=== PATIENT | male | born 1940 ===

== ENCOUNTER 2016-09-07 03:12 | Inpatient (IN) | payer MEDICARE, OTHER ==
[~2016-09-07] VITALS: Ht 177.8 cm; Wt 94.6 kg
--- NOTE | 2016-09-07 03:00 | NUR ---
received report from Georgie Lechuga rn from [facility] via phone
[2016-09-07 04:15] VITALS: BP 111/67
--- NOTE | 2016-09-07 04:15 | NUR ---
received pt to unit via stretcher accompanied by ems x2. pt a/o x3 20 angiocath to right fa. garland catheter patent and draining yellow/clr urine
[2016-09-07] MEDS ORDERED: NS 1000ML 1,000 ML ONE (04:55)
[2016-09-07] MEDS ORDERED: NS 1000ML IV SCH (05:00)
--- NOTE | 2016-09-07 05:00 | NUR ---
ns order did not cross over to emar, so it was not scanned on wow
[2016-09-07] MEDS ORDERED: CETI10TA18 PO (05:11)
[2016-09-07] MEDS ORDERED: CHOL100011 PO (05:13)
[2016-09-07] MEDS ORDERED: CYAN10005 PO (05:14)
[2016-09-07] MEDS ORDERED: PROP10TA PO (05:16)
[2016-09-07] MEDS ORDERED: NS 100ML 100 ML IV ONE (05:17)
[2016-09-07] MEDS ORDERED: ROCEPHIN ONE (05:17)
[2016-09-07] MEDS: ROCEPHIN 1,000 MG in NS 100ML 100 ML IV SCH ×3 (05:21→20:50)
[2016-09-07] MEDS ORDERED: TIMO5DRO5 BOTH EYES (05:25)
[2016-09-07] MEDS ORDERED: UREA198C TP (05:26)
[2016-09-07] MEDS ORDERED: TAMS-14 PO (05:30)
[2016-09-07 06:52] LABS: CREATINE KINASE MB 2.2 ng/mL (0.5-3.6)
[2016-09-07 08:19] LABS: BASOPHIL % 0.2 % (0.0-0.2); EOSINOPHIL # 0.2 10^3/uL (0.0-0.2); EOSINOPHIL % 1.2 % (0.0-5.0); HEMATOCRIT 35.4 % (37.0-53.0); LYMPHOCYTES # 0.8 10^3/uL (1.0-4.8); LYMPHOCYTES % 6.2 % (24.0-44.0); MEAN CELL HGB 28.8 pg (26-34); MEAN CELL HGB CONCENTRATION 33.9 g/dL (33-37); MEAN CORP VOLUME 85.1 fL (78-100); MEAN PLATELET VOLUME 9.3 fL (7.8-11.0); MONOCYTES # 0.8 10^3/uL (0.3-0.8); MONOCYTES % 5.7 % (5.0-12.0); NEUTROPHIL # 11.6 10^3/uL (1.8-7.7); NEUTROPHILS % 86.3 % (41.0-85.0); RED BLOOD CELL 4.16 10^6/uL (4.50-5.90); RED CELL DISTRIBUTION WIDTH 12.6 % (11.5-14.5); WHITE BLOOD CELL 13.5 10^3/uL (4.5-11.0)
[2016-09-07] MEDS: TIMOPTIC BOTH EYES SCH ×2 (09:00→21:17)
[2016-09-07] MEDS: VITAMIN D PO SCH (09:00)
[2016-09-07] MEDS: FLOMAX PO SCH (09:00)
[2016-09-07] MEDS: VITAMIN B-12 PO SCH (09:00)
--- NOTE | 2016-09-07 09:25 | NUR ---
DISCHARGE PLANNING: SS VISITED WITH PT CONCERNING DISCHARGE PLANNING. PT LIVES HOME WITH HIS AND IS A [facility] PAT[facility]. PT STATED HE HAS A CANE HE USES NEEDED. PT STATED [facility] HIM AND ASSIST WITH ANY NEEDS HE MAY HAVE. NO FURTHER NEEDS WERE NOTED OR IDENTIFIED AT THIS TIME. PT SAFETY HANDOUT ADDRESSED, NO QUESTIONS ASKED, UNDERSTANDING VERBALIZED. SS TO CONTINUE TO FOLLOW AND MONITOR DISCHARGE PLANNING NEEDS.
--- NOTE | 2016-09-07 09:52 | PCM.HP ---
History of Present Illness Reason for Visit: weakness History of Present Illness 76-year-old ID patient was transferred from [facility] emergency room for the management of acute urinary retention, leukocytosis, systolic cardiac murmur and minimally elevated troponin. This 76-year-old gentleman has been experiencing recent weakness, episode of nausea and vomiting and intolerance to po intake. upon presentation to the emergency room he was noted to be in urinary retention by bladder scan, Mendoza's catheter was placed successfully with significant amount of output. his workup showed leukocytosis, troponin at the ID was 0.8. EKG showed normal sinus rhythm. Examination confirmed the presence of 4/6 systolic murmur likely aortic stenosis examination today showedright leg edema.. Was chronic large anterior abdominal wall hernia the patient would like this to be managed by a ID surgeon for chronic presence Past Medical History Cardiac: HTN, Aortic Stenosis Pulmonary: COPD GI: Constipation Musculoskeletal: Chronic Low Back Pain Ab: Cooperative/Pleasant Past Surgical History: Other ( denies cardiac procedures other than echocardiogram) Past Social History Smoke: No Occupation: Karate process trainer Alcohol: rare Travel Hx EBOLA RISK:Travel to/contact w: No Is pt experiencing any Ebola s: No Review of Systems Constitutional: : Malaise: Weakness Eyes: No: Conjunctivae inflammation, Eyelid inflammation, Other, Pain, Redness , Vision change Respiratory: : SOB with excertionNo: Cough, Dry, Hemoptysis, Other, Pleuritic Pain, Shortness of breath, Sputum, Wheezing, Wheezing Gastrointestinal: : Abdominal Pain: Nausea: Other (intolerance for food): Vomiting Genitourinary: Dysuria Retention Musculoskeletal: No: arm pain, back pain, foot pain, hand pain, leg pain, neck pain, other, shoulder pain Skin: No: Bruising, Jaundice, Lesions, Other, Rash Allergies: Coded Allergies: nifedipine (Unverified Allergy, Intermediate, 09/07/16) lisinopril (Unverified Allergy, Unknown, 09/07/16) magnesium citrate (Unverified Adverse Reaction, Unknown, 09/07/16) Scheduled Cetirizine Hcl (Cetirizine Hcl) 10 MG PO DAILY (Reported) Cholecalciferol (Vitamin D3) (Vitamin D) 1,000 UNIT PO DAILY (Reported) Cyanocobalamin (Vitamin B-12) (Vitamin B-12) 1,000 MCG PO DAILY (Reported) Propranolol Hcl (Propranolol Hcl) 10 MG PO BID (Reported) Tamsulosin Hcl (Flomax) 0.4 MG PO DAILY (Reported) Timolol Maleate (Timolol Maleate) 1 DROP BOTH EYES BID (Reported) Urea (Urea) 30 GM TP HS (Reported) VTE VTE Risk Total Score: 3 VTE Risk Score VTE Risk: Score 0-1 = Low Risk (Aggressive mobilization; early ambulation; no VTE prophylaxis required) Score 2: Moderate Risk (Intermittent/Pneumatic Compression Device OR Lovenox/Heparin/Coumadin) Score 3-4: High Risk (Intermittent/Pneumatic Compression Device AND Lovenox/Heparin/Coumadin) Score > or =5: Highest Risk (Intermittent/Pneumatic Compression Device AND Lovenox/Heparin/Coumadin) VTE VTE Present on Admission: Yes Currently receiving anticoagul: No VTE Risk Total Score: 3 Exam Vital Signs Vital Signs Date Time Temp Pulse Resp B/P Pulse Ox O2 Delivery O2 Flow Rate FiO2 09/07/16 05:53 Room Air 09/07/16 04:15 97.9 75 18 111/67 95 General Appearance: Alert, Oriented X3, Cooperative HEENT: Atraumatic, PERRLA, EOMI Respiratory: Clear to auscultation Cardiovascular: Regular rate, Other ( for over 6 systolic murmur and aortic location) Abdominal: Normal bowel sounds, Other ( large protruding abdominal hernia) Extremities: No clubbing, Other ( right leg swelling, left is normal) Assessment/Plan Assessment/Plan Assessment/Plan - acute prostatism with urinary retention - aortic stenosis moderate to severe by examination - minimal troponin elevation the second set repeated in our facility was normal , EKG was normal - hypertension - large abdominal wall hernia - abdominal pain with nausea and vomiting plan: CT of the abdomen pelvis, consult urology, echocardiogram, IV fluids with hydration, symptomatic management, check ultrasound of the lower extremity for DVT Problems: MEAGAN MENESES MD Sep 07, 2016 09:52
[2016-09-07] MEDS: INDERAL PO SCH ×2 (10:01→20:51)
[2016-09-07] MEDS: LOVENOX SQ SCH (10:04)
[2016-09-07] MEDS: NS 1000ML 1,000 ML IV SCH (10:08)
[2016-09-07 11:32] LABS: ALANINE AMINOTRANSFERASE 42 U/L (12-78); ALBUMIN 1.5 g/dL (3.4-5.0); ALKALINE PHOSPHATASE 56 U/L (50-136); ASPARTATE AMINO TRANSFERASE 46 U/L (0-35); BILIRUBIN,DIRECT 0.11 mg/dL (0.00-0.30); CREATINE KINASE MB 1.5 ng/mL (0.5-3.6)
[2016-09-07] MEDS ORDERED: LEVAQUIN IV ONE (12:00)
--- NOTE | 2016-09-07 13:03 | DIREP ---
PROCEDURE:CT ABDOMEN/PELVIS W/ CONTRAST COMPARISON:None. INDICATIONS:hernia TECHNIQUE:Axial images were created through the abdomen and pelvis with non-ionic intravenous contrast material. Oral contrast was administered. Sagittal and coronal reconstructions were performed from source images. FINDINGS: LUNG BASES:Bilateral subpleural interstitial thickening suggesting fibrosis or atelectasis. Vascular calcifications. LIVER:Tiny cyst in the central liver measures 9 mm. Left hepatic lobe cyst measures 2.8 cm. BILIARY:There is a gallstone in the lumen of the gallbladder. There is no biliary ductal dilatation. PANCREAS:Normal. No lesion, fluid collection, ductal dilatation, or atrophy. SPLEEN:Normal. No enlargement or focal lesion. ADRENALS:Normal. No mass or enlargement. URINARY TRACT:Normal. No focal lesions or hydronephrosis. AORTA/VASCULAR:There are aortic atherosclerotic calcifications present. No aneurysm. RETROPERITONEUM:Normal. No mass or adenopathy. BOWEL/MESENTERY:diverticulosis of the descending and sigmoid colon without acute diverticulitis. ABDOMINAL WALL:There is a large midline anterior abdominal wall hernia containing transverse colon. Opening measures 6 cm. Hernia sac measures 20 cm in transverse and 13 cm in cephalocaudad dimensions. A second, slightly lower midline abdominal wall hernia contains nearly all of the small bowel and right colon. Opening measures 4.5 x 3.5 cm. Hernia sac measures 21 cm in transverse and 21 cm in cephalocaudad dimensions. PELVIC ORGANS:There is a catheter within the urinary bladder. Enlarged prostate. BONES:There are degenerative changes of the spine. OTHER:Negative. CONCLUSION: 1. There are 2 separate anterior abdominal wall hernias, both in the midline of the anterior abdominal wall. See above discussion. 2. Diverticulosis of the colon without acute diverticulitis. 3. Cholelithiasis. Dictated by: Adrian Jordan M.D. on 09/07/2016 at 12:54 PM
[2016-09-07 13:11] VITALS: BP 112/58
--- NOTE | 2016-09-07 13:51 | DIREP ---
PROCEDURE:US DUPLEX EXTREM VEINS BILATERAL COMPARISON:[facility], CT, CT ABD/PELVIS W/ CONTRAST, 09/07/2016, 11:16 AM. INDICATIONS:rle swelling, pain TECHNIQUE:The lower extremities were evaluated utilizing chase scale images with segmental compression, color Doppler, and spectral Doppler with respiratory variation and augmentation. FINDINGS: RIGHT Common femoral vein:Patent Superficial femoral vein:Patent Popliteal vein:Patent Anterior tibial vein:Patent Posterior tibial vein:Patent Greater saphenous vein:Patent Waveforms are within normal limits. LEFT Common femoral vein:Patent Superficial femoral vein:Patent Popliteal vein:Patent Anterior tibial vein:Patent Posterior tibial vein:Patent Greater saphenous vein:Patent Waveforms are within normal limits. CONCLUSION: 1. No evidence of deep venous thrombosis within either lower extremity. Dictated by: Francisco Pérez M.D. on 09/07/2016 at 12:48 PM
[2016-09-07 15:46] VITALS: BP 97/56
--- NOTE | 2016-09-07 18:30 | NUR ---
received report from 0630 shift
[2016-09-07 18:38] LABS: CREATINE KINASE MB 0.9 ng/mL (0.5-3.6)
[2016-09-07 19:20] VITALS: BP 117/64
[2016-09-07] MEDS: PEPCID PO SCH (20:50)
--- NOTE | 2016-09-07 21:00 | NUR ---
up to br with walker with standby assist , pt is able to have a large loose bm
--- NOTE | 2016-09-07 23:02 | NUR ---
dietary consult for low albumin
[2016-09-08 01:06] VITALS: BP 111/65
[2016-09-08 02:20] LABS: CREATINE KINASE MB 0.7 ng/mL (0.5-3.6)
[2016-09-08 04:10] LABS: BILIRUBIN,URINE NEGATIVE (NEGATIVE); PH,URINE 8 (5.0-6.0)
[2016-09-08 04:15] LABS: APPEARANCE,URINE CLEAR (CLEAR); UA COLOR YELLOW (YELLOW); WBC,URINE NONE SEEN WBC/HPF (0-2)
[2016-09-08 05:26] VITALS: BP 125/72
[2016-09-08 05:53] LABS: BASOPHIL % 0.2 % (0.0-0.2); EOSINOPHIL # 0.2 10^3/uL (0.0-0.2); EOSINOPHIL % 1.3 % (0.0-5.0); HEMATOCRIT 35.4 % (37.0-53.0); HEMOGLOBIN 12.1 g/dL (13.9-16.3); LYMPHOCYTES # 0.9 10^3/uL (1.0-4.8); LYMPHOCYTES % 7.6 % (24.0-44.0); MEAN CELL HGB 28.7 pg (26-34); MEAN CELL HGB CONCENTRATION 34.2 g/dL (33-37); MEAN CORP VOLUME 84.1 fL (78-100); MONOCYTES # 0.9 10^3/uL (0.3-0.8); MONOCYTES % 7.3 % (5.0-12.0); NEUTROPHIL # 10.2 10^3/uL (1.8-7.7); NEUTROPHILS % 83.2 % (41.0-85.0); RED BLOOD CELL 4.21 10^6/uL (4.50-5.90); RED CELL DISTRIBUTION WIDTH 12.6 % (11.5-14.5); WHITE BLOOD CELL 12.3 10^3/uL (4.5-11.0)
[2016-09-08 05:57] LABS: ANION GAP 8.1; CALCIUM 7.8 mg/dL (8.4-10.5); CREATININE SERUM 0.85 mg/dL (0.59-1.40); GLUCOSE 101 mg/dL (70-110)
[2016-09-08 06:06] LABS: INR 1.1
[2016-09-08] MEDS: ROCEPHIN 1,000 MG in NS 100ML 100 ML IV SCH ×2 (08:35→21:08)
[2016-09-08] MEDS: INDERAL PO SCH ×2 (08:37→21:08)
[2016-09-08] MEDS: VITAMIN D PO SCH (08:37)
[2016-09-08] MEDS: FLOMAX PO SCH (08:37)
[2016-09-08] MEDS: VITAMIN B-12 PO SCH (08:37)
[2016-09-08] MEDS: CLARITIN PO SCH (08:37)
[2016-09-08] MEDS: TIMOPTIC BOTH EYES SCH ×2 (08:37→21:08)
[2016-09-08] MEDS: PEPCID PO SCH ×2 (08:37→21:08)
--- NOTE | 2016-09-08 08:43 | PRM.PN ---
Subjective Subjective Subjective patient seen and examined. Vital signs stable. Lab results reviewed urology has been consulted plan for cystoscopy and possible need for resection CT scan of the abdomen showed benign finding of large ventral abdominal hernia patient would like to manage the hernia as an outpatient with [facility] he is in full agreement on urology plan VTE VTE Risk Total Score: 3 VTE Risk Score VTE Risk: Score 0-1 = Low Risk (Aggressive mobilization; early ambulation; no VTE prophylaxis required) Score 2: Moderate Risk (Intermittent/Pneumatic Compression Device OR Lovenox/Heparin/Coumadin) Score 3-4: High Risk (Intermittent/Pneumatic Compression Device AND Lovenox/Heparin/Coumadin) Score > or =5: Highest Risk (Intermittent/Pneumatic Compression Device AND Lovenox/Heparin/Coumadin) Review of Systems Constitutional: : Malaise: Weakness Eyes: No: Conjunctivae inflammation, Eyelid inflammation, Other, Pain, Redness , Vision change Respiratory: : SOB with excertionNo: Cough, Dry, Hemoptysis, Other, Pleuritic Pain, Shortness of breath, Sputum, Wheezing, Wheezing Gastrointestinal: : Abdominal Pain: Nausea: Other (intolerance for food): Vomiting Genitourinary: Dysuria Retention Musculoskeletal: No: arm pain, back pain, foot pain, hand pain, leg pain, neck pain, other, shoulder pain Skin: No: Bruising, Jaundice, Lesions, Other, Rash Allergies: Coded Allergies: nifedipine (Unverified Allergy, Intermediate, 09/07/16) lisinopril (Unverified Allergy, Unknown, 09/07/16) magnesium citrate (Unverified Adverse Reaction, Unknown, 09/07/16) Scheduled Cetirizine Hcl (Cetirizine Hcl) 10 MG PO DAILY (Reported) Cholecalciferol (Vitamin D3) (Vitamin D) 1,000 UNIT PO DAILY (Reported) Cyanocobalamin (Vitamin B-12) (Vitamin B-12) 1,000 MCG PO DAILY (Reported) Propranolol Hcl (Propranolol Hcl) 10 MG PO BID (Reported) Tamsulosin Hcl (Flomax) 0.4 MG PO DAILY (Reported) Timolol Maleate (Timolol Maleate) 1 DROP BOTH EYES BID (Reported) Urea (Urea) 30 GM TP HS (Reported) Objective Vitals and I/O Vital Sign - Last 24 Hours 09/07/16 09/07/16 09/07/1614/17 13:11 13:13 15:46 19:20 Temp 98.3 99.4 Pulse 78 81 87 Resp 18 18 B/P 112/58 97/56 117/64 Pulse Ox 97 94 94 O2 Delivery Room Air Room Air Room Air 09/07/16 09/08/16 09/08/16 19:20 01:06 05:26 Temp 98.6 99.4 Pulse 79 81 Resp 18 18 B/P 111/65 125/72 Pulse Ox 94 91 O2 Delivery Room Air Room Air Room Air Intake and Output 09/07/16 09/07/16 09/08/16 15:00 23:00 07:00 Intake Total 2000 ml Output Total 700 ml 600 ml 2475 ml Balance -700 ml -600 ml -475 ml General: Alert, Oriented X3, Cooperative HEENT: Atraumatic, Mucous membr. moist/pink Neck: Supple Lungs: Clear to auscultation Heart: Normal S1, Other ( systolic murmur) Abdomen: Normal bowel sounds, Other ( large ventral abdominal hernia) Extremities: No clubbing Medication Reconciliation Scheduled Cetirizine Hcl (Cetirizine Hcl) 10 MG PO DAILY (Reported) Cholecalciferol (Vitamin D3) (Vitamin D) 1,000 UNIT PO DAILY (Reported) Cyanocobalamin (Vitamin B-12) (Vitamin B-12) 1,000 MCG PO DAILY (Reported) Propranolol Hcl (Propranolol Hcl) 10 MG PO BID (Reported) Tamsulosin Hcl (Flomax) 0.4 MG PO DAILY (Reported) Timolol Maleate (Timolol Maleate) 1 DROP BOTH EYES BID (Reported) Urea (Urea) 30 GM TP HS (Reported) Assessment/Plan Assessment/Plan Assessment/Plan - prostatic hypertrophy with urinary retention, acute -UTI - aortic stenosis moderate - hypertension plan: urology workup and treatment, antibiotics, fluids, Problems: MEAGAN MENESES MD Sep 08, 2016 08:43
[2016-09-08] MEDS: NS 1000ML 1,000 ML IV SCH ×3 (09:30→18:50)
--- NOTE | 2016-09-08 09:46 | ECHO ---
DATE OF SERVICE: 09/07/2016 INDICATIONS: A 76-year-old gentleman with significant murmur admitted with urinary retention needing fluid resuscitation and possibly needing surgical intervention for prostate. Echocardiographic study was requested to evaluate the aortic valve and assessment of other structural and functional heart conditions. FINDINGS: 1. Study quality was poor to fair. 2. Underlying rhythm was sinus rhythm. 3. LV function was preserved around 60%. Mild septal hypokinesia, septal hypertrophy was noted. No LVOT obstruction. LV dimensions were within normal range. 4. LVH was moderate concentric 5. RV size and EF were normal. 6. Both atria were moderately dilated. 7. Mitral valve showed annular calcification, adequate opening, minimal regurgitation noted. Doppler signal exam across the mitral inflow showed E to A reversal with grade 1 diastolic dysfunction. The mean gradient by Doppler signal was around 3.2 mmHg. No stenosis. 8. Aortic valve was heavily calcified. There is moderate aortic regurgitation. LVOT dimension was 2 cm. LVOT mean gradient was 4 mmHg. 9. Aortic valve Doppler study showed a mean velocity across the aortic valve of 1.3 meter per second, aortic valve area by VTI method was 2.6 cm2 suggestive of fgjz-vl-timhxdof aortic stenosis. 10. Stable pulmonary artery systolic pressure. 11. Mild tricuspid regurgitation. 12. No pericardial effusion. 13. Inferior vena cava was not well visualized. IMPRESSION: 1. Preserved EF around 55-60%. Moderate septal hypertrophy and hypokinesia. No LVOT obstruction. 2. Moderate LVH concentric. 3. Normal RV size and EF. 4. Moderately dilated both atria. 5. Calcified mitral valve without stenosis, mild regurgitation. 6. Grade 1 diastolic dysfunction. 7. Cnax-nz-qgrnftxh aortic stenosis. The mean velocity was 1.3 meter per second, aortic valve area was around 2-2.5 cm2. 8. Normal pulmonary artery systolic pressure. 9. No pericardial effusion. 10. Mild tricuspid regurgitation. Federica Barahona MD DR: LILIA/elier JOB# [id number]
[2016-09-08] MEDS: LOVENOX SQ SCH (10:00)
--- NOTE | 2016-09-08 10:50 | NUR ---
Patient sponge bathed self ambulated in hallway with minimal stand by assist and a walker patient sitting up in chair awaiting lunch
--- NOTE | 2016-09-08 11:36 | CNH ---
DATE OF CONSULTATION: 09/07/2016 This is a 76-year-old white male who was referred for evaluation due to urinary retention. The patient has indwelling ureteral Mendoza catheter and having this urinary problem for the past few months. Chart was reviewed. This patient was initially admitted by Dr. Barahona because of the elevated troponin. According to him, it will be okay to go ahead with the urological procedure. So, I explained to the patient and I will schedule him in 2 days for cystoscopy and cystometry for further evaluation. Luis A Mckay MD DR: DUARTE/elier JOB# [id number]
[2016-09-08 11:54] VITALS: BP 94/62
[2016-09-08 15:33] VITALS: BP 97/58
[2016-09-08 20:00] VITALS: BP 107/65
[2016-09-09] VITALS (9 sets, daily range): BP systolic 98–135; BP diastolic 52–71
[2016-09-09] MEDS: NS 1000ML 1,000 ML IV SCH ×3 (03:10→22:32)
[2016-09-09] MEDS ORDERED: LEVAQUIN IV ONE (07:00)
[2016-09-09] MEDS: VITAMIN D PO SCH (09:00)
[2016-09-09] MEDS: PEPCID PO SCH ×2 (09:00→21:06)
[2016-09-09] MEDS: VITAMIN B-12 PO SCH (09:00)
[2016-09-09] MEDS: CLARITIN PO SCH (09:00)
[2016-09-09] MEDS: TIMOPTIC BOTH EYES SCH ×2 (09:00→21:00)
[2016-09-09] MEDS: INDERAL PO SCH ×2 (09:00→21:07)
[2016-09-09] MEDS: FLOMAX PO SCH (09:00)
[2016-09-09] MEDS: LOVENOX SQ SCH (09:03)
--- NOTE | 2016-09-09 09:20 | PRM.PN ---
Subjective Subjective Subjective patient seen and examined. No events overnight. Scheduled for cystoscopy today VTE VTE Risk Total Score: 3 VTE Risk Score VTE Risk: Score 0-1 = Low Risk (Aggressive mobilization; early ambulation; no VTE prophylaxis required) Score 2: Moderate Risk (Intermittent/Pneumatic Compression Device OR Lovenox/Heparin/Coumadin) Score 3-4: High Risk (Intermittent/Pneumatic Compression Device AND Lovenox/Heparin/Coumadin) Score > or =5: Highest Risk (Intermittent/Pneumatic Compression Device AND Lovenox/Heparin/Coumadin) Review of Systems Constitutional: : Malaise: Weakness Eyes: No: Conjunctivae inflammation, Eyelid inflammation, Other, Pain, Redness , Vision change Respiratory: : SOB with excertionNo: Cough, Dry, Hemoptysis, Other, Pleuritic Pain, Shortness of breath, Sputum, Wheezing, Wheezing Gastrointestinal: : Abdominal Pain: Nausea: Other (intolerance for food): Vomiting Genitourinary: Dysuria Retention Musculoskeletal: No: arm pain, back pain, foot pain, hand pain, leg pain, neck pain, other, shoulder pain Skin: No: Bruising, Jaundice, Lesions, Other, Rash Allergies: Coded Allergies: nifedipine (Unverified Allergy, Intermediate, 09/07/16) lisinopril (Unverified Allergy, Unknown, 09/07/16) magnesium citrate (Unverified Adverse Reaction, Unknown, 09/07/16) Scheduled Cetirizine Hcl (Cetirizine Hcl) 10 MG PO DAILY (Reported) Cholecalciferol (Vitamin D3) (Vitamin D) 1,000 UNIT PO DAILY (Reported) Cyanocobalamin (Vitamin B-12) (Vitamin B-12) 1,000 MCG PO DAILY (Reported) Propranolol Hcl (Propranolol Hcl) 10 MG PO BID (Reported) Tamsulosin Hcl (Flomax) 0.4 MG PO DAILY (Reported) Timolol Maleate (Timolol Maleate) 1 DROP BOTH EYES BID (Reported) Urea (Urea) 30 GM TP HS (Reported) Objective Vitals and I/O Vital Sign - Last 24 Hours 09/08/16 09/08/16 09/08/16 09/08/16 11:54 15:33 20:00 21:55 Temp 97.7 97.8 98.5 Pulse 63 89 87 Resp 19 17 B/P 94/62 97/58 107/65 Pulse Ox 93 97 94 O2 Delivery Room Air Room Air 09/09/16 09/09/16 09/09/16 09/09/16 00:00 04:00 07:44 07:45 Temp 99.8 99.2 98.3 Pulse 88 74 88 Resp 17 18 19 B/P 123/67 103/71 111/54 Pulse Ox 93 93 93 O2 Delivery Room Air Intake and Output 09/08/16 09/08/16 09/09/16 15:00 23:00 07:00 Intake Total 2440 ml 520 ml Output Total 2555 ml 600 ml Balance -115 ml -80 ml General: Alert HEENT: Atraumatic Neck: Supple Lungs: Clear to auscultation Heart: Regular rate, Other ( mmoderate aortic stenosis murmur) Abdomen: Normal bowel sounds, Other ( large abdominal hernia, stable for his catheter in place) Extremities: No clubbing Medication Reconciliation Scheduled Cetirizine Hcl (Cetirizine Hcl) 10 MG PO DAILY (Reported) Cholecalciferol (Vitamin D3) (Vitamin D) 1,000 UNIT PO DAILY (Reported) Cyanocobalamin (Vitamin B-12) (Vitamin B-12) 1,000 MCG PO DAILY (Reported) Propranolol Hcl (Propranolol Hcl) 10 MG PO BID (Reported) Tamsulosin Hcl (Flomax) 0.4 MG PO DAILY (Reported) Timolol Maleate (Timolol Maleate) 1 DROP BOTH EYES BID (Reported) Urea (Urea) 30 GM TP HS (Reported) Assessment/Plan Assessment/Plan Assessment/Plan continue urology workup monitor labs Problems: MEAGAN MENESES MD Sep 09, 2016 09:20
[2016-09-09] MEDS ORDERED: LEVAQUIN 100 ML IV ONE (10:41)
[2016-09-09] MEDS: ROCEPHIN 1,000 MG in NS 100ML 100 ML IV SCH ×2 (10:45→21:08)
[2016-09-09] MEDS ORDERED: ZOFRAN ONE (11:06)
[2016-09-09] MEDS ORDERED: SUBLIMAZE ONE (11:06)
[2016-09-09] MEDS ORDERED: SODIUM CHLORIDE IR ONE ×2 (11:09)
--- NOTE | 2016-09-09 11:33 | NUR ---
PATIENT LEFT FOR PROCEDURE AT THIS TIME.
[2016-09-09] MEDS ORDERED: NORCO 7.5MG PO PRN (12:30)
[2016-09-09] MEDS ORDERED: LACTATED RINGERS 1,000 ML IV SCH ×2 (12:30)
--- NOTE | 2016-09-09 13:34 | NUR ---
CALLED TO INFORM HER THAT PROCEDURE WOULD BE ABOUT 8 IN THE MORNING.
[2016-09-09 13:44] LABS: BASOPHIL % 0.3 % (0.0-0.2); EOSINOPHIL # 0.2 10^3/uL (0.0-0.2); EOSINOPHIL % 1.4 % (0.0-5.0); HEMATOCRIT 37.9 % (37.0-53.0); LYMPHOCYTES # 0.8 10^3/uL (1.0-4.8); LYMPHOCYTES % 4.9 % (24.0-44.0); MEAN CELL HGB 28.8 pg (26-34); MEAN CELL HGB CONCENTRATION 34.3 g/dL (33-37); MEAN PLATELET VOLUME 9.4 fL (7.8-11.0); MONOCYTES # 0.7 10^3/uL (0.3-0.8); MONOCYTES % 4.7 % (5.0-12.0); NEUTROPHIL # 13.5 10^3/uL (1.8-7.7); NEUTROPHILS % 88.7 % (41.0-85.0); PLATELET COUNT 377 10^3/uL (150-400); RED BLOOD CELL 4.51 10^6/uL (4.50-5.90); RED CELL DISTRIBUTION WIDTH 13.1 % (11.5-14.5); WHITE BLOOD CELL 15.2 10^3/uL (4.5-11.0)
--- NOTE | 2016-09-09 14:23 | OPH ---
DATE OF SURGERY: 09/09/2016 PREOPERATIVE DIAGNOSIS: Urinary retention. FINAL DIAGNOSES: 1. Urinary retention. 2. Obstructive prostatic hyperplasia. DESCRIPTION OF PROCEDURE: The patient was brought to the cystoscopy room and was put in supine position on the cystoscopy table. After the patient was given an IV sedation, the patient was placed in the lithotomy position. The genitalia was then prepped and draped aseptically in the usual manner. First, a 22-Italian cystoscope was inserted per urethra up to the with the use of a 30-degree lens, verumontanum was identified. There was a marked obstructive prostatic hyperplasia. The bladder was visualized and there was some mild trabeculation noted. No tumor, no calculi seen. Also prior to this, a water cystometry with voiding pressure was done, which showed the pressure to be normal, voiding pressure more than 30 . After the procedure was done, the instrument was removed and a Mendoza catheter was reinserted with the use of a guidewire. FINAL DIAGNOSES: Obstructive prostatic hyperplasia and urinary retention. We will plan to discuss with the patient and will probably need a TUR of the prostate. Luis A Mckay MD DR: DUARTE/elier JOB# [id number]
[2016-09-09 14:30] LABS: ANION GAP 9.1; CALCIUM 7.7 mg/dL (8.4-10.5); CREATININE SERUM 0.84 mg/dL (0.59-1.40); GLUCOSE 150 mg/dL (70-110)
[2016-09-09 15:12] LABS: INR 1.1; PARTIAL THROMBOPLASTIN TIME 29.3 SEC (24.67-30.72); PROTHROMBIN PROTIME 11.8 SEC (9.8-11.9)
[2016-09-09 15:47] LABS: BAND NEUTROPHILS 2 % (2-6); BASOPHIL 0 % (0-2); EOSINOPHIL 0 % (1-4); LYMPHOCYTE 17 % (25-36); MONOCYTE 9 % (3-9); SEGMENTED NEUTROPHILS 72 % (31-76); TOTAL CELLS COUNTED 100 #CELLS
--- NOTE | 2016-09-09 16:00 | NUR ---
PATIENTS WBC INCREASED. NOTIFIED DR. PALMER AND DR. MENESES. NEW ORDERS RECEIVED.
[2016-09-09] MEDS ORDERED: NS IV ONE (16:30)
[2016-09-09] MEDS ORDERED: VANCOMYCIN IV ONE (16:30)
[2016-09-09 16:41] LABS: BILIRUBIN,URINE NEGATIVE (NEGATIVE); PH,URINE 6 (5.0-6.0); UROBILINOGEN,URINE NORMAL (NEGATIVE)
[2016-09-09 16:50] LABS: APPEARANCE,URINE CLEAR (CLEAR); UA COLOR YELLOW (YELLOW)
--- NOTE | 2016-09-09 18:42 | NUR ---
report received report from offgoing shift
[2016-09-09] MEDS ORDERED: NS 1000ML 1,000 ML ONE (22:29)
[2016-09-10] VITALS: BP 107/68
[2016-09-10 04:00] VITALS: BP 106/64
[2016-09-10 05:36] LABS: BASOPHIL # 0.1 10^3/uL (0.0-0.1); BASOPHIL % 0.4 % (0.0-0.2); EOSINOPHIL # 0.2 10^3/uL (0.0-0.2); HEMATOCRIT 42.1 % (37.0-53.0); HEMOGLOBIN 14.1 g/dL (13.9-16.3); LYMPHOCYTES # 1.3 10^3/uL (1.0-4.8); LYMPHOCYTES % 6.6 % (24.0-44.0); MEAN CELL HGB 28.5 pg (26-34); MEAN CELL HGB CONCENTRATION 33.5 g/dL (33-37); MEAN CORP VOLUME 85.1 fL (78-100); MEAN PLATELET VOLUME 8.9 fL (7.8-11.0); MONOCYTES # 1.3 10^3/uL (0.3-0.8); MONOCYTES % 6.5 % (5.0-12.0); NEUTROPHIL # 17.4 10^3/uL (1.8-7.7); RED BLOOD CELL 4.95 10^6/uL (4.50-5.90); RED CELL DISTRIBUTION WIDTH 13.1 % (11.5-14.5); WHITE BLOOD CELL 20.4 10^3/uL (4.5-11.0)
[2016-09-10] MEDS ORDERED: ZOFRAN ONE (06:12)
[2016-09-10] MEDS ORDERED: ZEMURON IV ONE (06:12)
[2016-09-10] MEDS ORDERED: SUBLIMAZE ONE (06:13)
[2016-09-10] MEDS ORDERED: VERSED ONE (06:13)
[2016-09-10] MEDS ORDERED: DIPRIVAN IV ONE (06:14)
[2016-09-10 06:16] LABS: ANION GAP 11.1; CALCIUM 8.3 mg/dL (8.4-10.5); CARBON DIOXIDE 24.8 mmol/L (20.0-32); GLUCOSE 113 mg/dL (70-110)
--- NOTE | 2016-09-10 06:50 | NUR ---
report report given to o/c shift
[2016-09-10] MEDS ORDERED: LEVAQUIN PO ONE (07:00)
[2016-09-10] MEDS ORDERED: VANCOMYCIN IV SCH (09:00)
[2016-09-10] MEDS ORDERED: NS IV SCH (09:00)
[2016-09-10] MEDS: TIMOPTIC BOTH EYES SCH ×2 (09:00→21:00)
[2016-09-10] MEDS ORDERED: VANCOMYCIN HCL 1 GM in NS 250ML 250 ML IV SCH (09:10)
--- NOTE | 2016-09-10 09:16 | PRM.PN ---
Subjective Subjective Subjective patient seen and examined. Reports no new symptoms. No fever, hemodynamic stable. Leukocytosis noted patient was scheduled for TURP today had to be postponed due to progressive leukocytosis. Septic workup progress VTE VTE Risk Total Score: 3 VTE Risk Score VTE Risk: Score 0-1 = Low Risk (Aggressive mobilization; early ambulation; no VTE prophylaxis required) Score 2: Moderate Risk (Intermittent/Pneumatic Compression Device OR Lovenox/Heparin/Coumadin) Score 3-4: High Risk (Intermittent/Pneumatic Compression Device AND Lovenox/Heparin/Coumadin) Score > or =5: Highest Risk (Intermittent/Pneumatic Compression Device AND Lovenox/Heparin/Coumadin) Review of Systems Constitutional: : Malaise: Weakness Eyes: No: Conjunctivae inflammation, Eyelid inflammation, Other, Pain, Redness , Vision change Respiratory: : SOB with excertionNo: Cough, Dry, Hemoptysis, Other, Pleuritic Pain, Shortness of breath, Sputum, Wheezing, Wheezing Gastrointestinal: : Other (intolerance for food)No: Abdominal Pain, Constipation, Diarrhea, Hematochezia, Melena, Nausea, Vomiting Genitourinary: Dysuria Retention Musculoskeletal: No: arm pain, back pain, foot pain, hand pain, leg pain, neck pain, other, shoulder pain Skin: No: Bruising, Jaundice, Lesions, Other, Rash Allergies: Coded Allergies: nifedipine (Unverified Allergy, Intermediate, 09/07/16) lisinopril (Unverified Allergy, Unknown, 09/07/16) magnesium citrate (Unverified Adverse Reaction, Unknown, 09/07/16) Scheduled Cetirizine Hcl (Cetirizine Hcl) 10 MG PO DAILY (Reported) Cholecalciferol (Vitamin D3) (Vitamin D) 1,000 UNIT PO DAILY (Reported) Cyanocobalamin (Vitamin B-12) (Vitamin B-12) 1,000 MCG PO DAILY (Reported) Propranolol Hcl (Propranolol Hcl) 10 MG PO BID (Reported) Tamsulosin Hcl (Flomax) 0.4 MG PO DAILY (Reported) Timolol Maleate (Timolol Maleate) 1 DROP BOTH EYES BID (Reported) Urea (Urea) 30 GM TP HS (Reported) Objective Vitals and I/O Vital Sign - Last 24 Hours 09/09/16 09/09/16 09/09/16 09/09/16 12:12 12:12 12:17 12:22 Temp 99.1 Pulse 87 87 85 Resp B/P 101/62 103/66 107/62 Pulse Ox 94 97 95 O2 Delivery Nasal Canula Nasal Canula Nasal Canula O2 Flow Rate 3 09/09/16 09/09/16 09/09/16 09/09/16 12:27 12:32 20:00 20:00 Temp 99.0 98.4 Pulse 84 86 94 Resp B/P 106/66 98/52 135/68 Pulse Ox 94 96 95 O2 Delivery Nasal Canula Nasal Canula Room Air 09/10/16 09/10/16 00:00 04:00 Temp 98.7 98.6 Pulse 94 85 Resp B/P 107/68 106/64 Pulse Ox 91 91 Intake and Output 09/09/16 09/09/16 09/10/16 15:00 23:00 07:00 Intake Total 8700 ml 1440 ml Output Total 1160 ml Balance 8700 ml 280 ml General: Alert, Oriented X3 HEENT: Atraumatic, PERRLA Neck: Supple Lungs: Clear to auscultation Heart: Regular rate Abdomen: Normal bowel sounds Extremities: No clubbing Skin: No rashes Medication Reconciliation Scheduled Cetirizine Hcl (Cetirizine Hcl) 10 MG PO DAILY (Reported) Cholecalciferol (Vitamin D3) (Vitamin D) 1,000 UNIT PO DAILY (Reported) Cyanocobalamin (Vitamin B-12) (Vitamin B-12) 1,000 MCG PO DAILY (Reported) Propranolol Hcl (Propranolol Hcl) 10 MG PO BID (Reported) Tamsulosin Hcl (Flomax) 0.4 MG PO DAILY (Reported) Timolol Maleate (Timolol Maleate) 1 DROP BOTH EYES BID (Reported) Urea (Urea) 30 GM TP HS (Reported) Assessment/Plan Assessment/Plan Assessment/Plan - UTI with progressive leukocytosis - prostatic hypertrophy planning for TURP - stable abdominal hernia - moderate aortic stenosis plan: septic workup, vancomycin and Rocephin IV, monitor any signs of sepsis Problems: MEAGAN MENESES MD Sep 10, 2016 09:16
--- NOTE | 2016-09-10 09:45 | PNH ---
DATE: 09/10/2016 SUBJECTIVE: The patient is a post ____ for TUR of the prostate today, but the procedure was cancelled since the white count went up to 20,000+. Sodium is down to 126. Currently, the patient is on Rocephin and Dr. Barahona also ordered vancomycin yesterday; however, since ____ the rising in WBC, the procedure will be cancelled. Urine culture was also obtained yesterday and we are waiting for the report. Currently, the patient is afebrile. Vital signs are stable. He is ____. Abdomen is soft, no flank tenderness. The urethral Mendoza catheter is in place with the clear urine output. The BUN and creatinine is normal. PLAN: We will discuss this case with Dr. Barahona for further evaluation regarding his high white blood cells count. Luis A Mckay MD DR: DUARTE/elier JOB# [id number]
[2016-09-10] MEDS: CLARITIN PO SCH (11:25)
[2016-09-10] MEDS: FLOMAX PO SCH (11:25)
[2016-09-10] MEDS: VITAMIN B-12 PO SCH (11:25)
[2016-09-10] MEDS: VITAMIN D PO SCH (11:25)
[2016-09-10] MEDS: INDERAL PO SCH ×2 (11:26→20:33)
[2016-09-10] MEDS: PEPCID PO SCH ×2 (11:26→20:33)
[2016-09-10] MEDS: LOVENOX SQ SCH (11:27)
[2016-09-10] MEDS: ROCEPHIN 1,000 MG in NS 100ML 100 ML IV SCH ×2 (11:27→22:38)
[2016-09-10] MEDS: VANCOMYCIN HCL 1 GM in NS 250ML 250 ML IV SCH (12:00)
[2016-09-10] MEDS: NORCO 7.5MG PO PRN ×2 (14:59→20:34)
[2016-09-10 16:30] VITALS: BP 108/65
--- NOTE | 2016-09-10 18:45 | NUR ---
Received report from off going shift
[2016-09-10 20:00] VITALS: BP 115/74
[2016-09-10] MEDS: NS 1000ML 1,000 ML IV SCH (21:16)
[2016-09-11] VITALS: BP 102/62
[2016-09-11] MEDS: VANCOMYCIN HCL 1 GM in NS 250ML 250 ML IV SCH ×2 (00:06→11:49)
[2016-09-11 01:15] VITALS: BP 115/74
[2016-09-11] MEDS: NORCO 7.5MG PO PRN ×2 (04:48→20:44)
[2016-09-11 04:50] VITALS: BP 121/68
[2016-09-11 06:57] LABS: BASOPHIL % 0.2 % (0.0-0.2); EOSINOPHIL # 0.2 10^3/uL (0.0-0.2); EOSINOPHIL % 1.4 % (0.0-5.0); HEMATOCRIT 37.4 % (37.0-53.0); HEMOGLOBIN 12.5 g/dL (13.9-16.3); LYMPHOCYTES # 0.7 10^3/uL (1.0-4.8); MEAN CELL HGB 28.1 pg (26-34); MEAN CELL HGB CONCENTRATION 33.4 g/dL (33-37); MEAN PLATELET VOLUME 8.9 fL (7.8-11.0); NEUTROPHIL # 12.5 10^3/uL (1.8-7.7); RED BLOOD CELL 4.45 10^6/uL (4.50-5.90); RED CELL DISTRIBUTION WIDTH 12.8 % (11.5-14.5); WHITE BLOOD CELL 14.5 10^3/uL (4.5-11.0)
[2016-09-11 07:12] LABS: ANION GAP 9.3; CARBON DIOXIDE 26.2 mmol/L (20.0-32); CREATININE SERUM 0.75 mg/dL (0.59-1.40); GLUCOSE 135 mg/dL (70-110)
[2016-09-11 07:33] VITALS: BP 129/77
[2016-09-11] MEDS: TIMOPTIC BOTH EYES SCH ×2 (09:00→20:38)
[2016-09-11] MEDS: NS 1000ML 1,000 ML IV SCH ×2 (09:02→17:10)
--- NOTE | 2016-09-11 09:30 | NUR ---
AMBULATION PATIENT AMBULATING IN HALLWAY WITH WALKER STAND BY ASSIST ONLY PATIENT AMBULATED APPROXIMATELY 50 FEET MODERATE AMOUNT OF DISTRESS NOTED
[2016-09-11] MEDS: PEPCID PO SCH ×2 (09:34→20:38)
[2016-09-11] MEDS: CLARITIN PO SCH (09:34)
[2016-09-11] MEDS: VITAMIN D PO SCH (09:34)
[2016-09-11] MEDS: VITAMIN B-12 PO SCH (09:35)
[2016-09-11] MEDS: INDERAL PO SCH ×2 (09:36→20:38)
[2016-09-11] MEDS: FLOMAX PO SCH (09:36)
[2016-09-11] MEDS: ROCEPHIN 1,000 MG in NS 100ML 100 ML IV SCH ×2 (09:40→20:38)
[2016-09-11] MEDS: LOVENOX SQ SCH (09:49)
--- NOTE | 2016-09-11 10:23 | NUR ---
Dr. Barahona at bedside. No new orders received.
[2016-09-11 12:15] VITALS: BP 104/64
--- NOTE | 2016-09-11 12:50 | PRM.PN ---
Subjective Subjective Subjective seen and examined, no active symptoms, Folys' in place VTE VTE Risk Total Score: 3 VTE Risk Score VTE Risk: Score 0-1 = Low Risk (Aggressive mobilization; early ambulation; no VTE prophylaxis required) Score 2: Moderate Risk (Intermittent/Pneumatic Compression Device OR Lovenox/Heparin/Coumadin) Score 3-4: High Risk (Intermittent/Pneumatic Compression Device AND Lovenox/Heparin/Coumadin) Score > or =5: Highest Risk (Intermittent/Pneumatic Compression Device AND Lovenox/Heparin/Coumadin) Review of Systems Constitutional: : Malaise: Weakness Eyes: No: Conjunctivae inflammation, Eyelid inflammation, Other, Pain, Redness , Vision change Respiratory: : SOB with excertionNo: Cough, Dry, Hemoptysis, Other, Pleuritic Pain, Shortness of breath, Sputum, Wheezing, Wheezing Gastrointestinal: : Other (intolerance for food)No: Abdominal Pain, Constipation, Diarrhea, Hematochezia, Melena, Nausea, Vomiting Genitourinary: Dysuria Retention Musculoskeletal: No: arm pain, back pain, foot pain, hand pain, leg pain, neck pain, other, shoulder pain Skin: No: Bruising, Jaundice, Lesions, Other, Rash Allergies: Coded Allergies: nifedipine (Unverified Allergy, Intermediate, 09/07/16) lisinopril (Unverified Allergy, Unknown, 09/07/16) magnesium citrate (Unverified Adverse Reaction, Unknown, 09/07/16) Scheduled Cetirizine Hcl (Cetirizine Hcl) 10 MG PO DAILY (Reported) Cholecalciferol (Vitamin D3) (Vitamin D) 1,000 UNIT PO DAILY (Reported) Cyanocobalamin (Vitamin B-12) (Vitamin B-12) 1,000 MCG PO DAILY (Reported) Propranolol Hcl (Propranolol Hcl) 10 MG PO BID (Reported) Tamsulosin Hcl (Flomax) 0.4 MG PO DAILY (Reported) Timolol Maleate (Timolol Maleate) 1 DROP BOTH EYES BID (Reported) Urea (Urea) 30 GM TP HS (Reported) Objective Vitals and I/O Vital Sign - Last 24 Hours 09/10/16 09/10/16 09/10/16 09/11/16 16:30 19:10 20:00 00:00 Temp 98.4 98.1 98.3 Pulse 84 94 75 Resp 20 18 18 B/P 108/65 115/74 102/62 Pulse Ox 99 95 O2 Delivery Nasal [place] Room Air Room Air 09/11/16 09/11/16 09/11/16 04:50 07:33 09:53 Temp 97.8 97.8 Pulse 81 87 Resp 18 B/P 121/68 129/77 Pulse Ox 95 95 O2 Delivery Room Air Room Air Intake and Output 09/10/16 09/10/16 09/11/16 15:00 23:00 07:00 Intake Total 2154 ml Output Total 700 ml Balance 1454 ml General: Alert, Oriented X3, No acute distress HEENT: Atraumatic, EOMI Neck: No thyromegaly Lungs: Normal air movement Heart: Regular rate, Normal S1, Normal S2, Other (systolic m) Abdomen: No tenderness Medication Reconciliation Scheduled Cetirizine Hcl (Cetirizine Hcl) 10 MG PO DAILY (Reported) Cholecalciferol (Vitamin D3) (Vitamin D) 1,000 UNIT PO DAILY (Reported) Cyanocobalamin (Vitamin B-12) (Vitamin B-12) 1,000 MCG PO DAILY (Reported) Propranolol Hcl (Propranolol Hcl) 10 MG PO BID (Reported) Tamsulosin Hcl (Flomax) 0.4 MG PO DAILY (Reported) Timolol Maleate (Timolol Maleate) 1 DROP BOTH EYES BID (Reported) Urea (Urea) 30 GM TP HS (Reported) Assessment/Plan Assessment/Plan Assessment/Plan -urinary retention -UTI --Acute prostatism -Moderate -stage 1 HTN -stable large Abd hernia Problems: MEAGAN MENESES MD Sep 11, 2016 12:49
--- NOTE | 2016-09-11 15:30 | NUR ---
AMBULATION PATIENT AMBULATING IN HALLWAY WITH WALKER MILD AMOUNT OF DISTRESS NOTED
[2016-09-11 20:00] VITALS: BP 119/65
[2016-09-12] VITALS: BP 103/66
[2016-09-12] MEDS: VANCOMYCIN HCL 1 GM in NS 250ML 250 ML IV SCH (02:22)
[2016-09-12 03:42] VITALS: BP 112/63
[2016-09-12] MEDS: NS 1000ML 1,000 ML IV SCH (06:14)
[2016-09-12 07:56] VITALS: BP 124/67
[2016-09-12] MEDS: PEPCID PO SCH (09:24)
[2016-09-12] MEDS: VITAMIN D PO SCH (09:24)
[2016-09-12] MEDS: INDERAL PO SCH (09:25)
[2016-09-12] MEDS: CLARITIN PO SCH (09:25)
[2016-09-12] MEDS: FLOMAX PO SCH (09:25)
[2016-09-12] MEDS: LOVENOX SQ SCH (09:26)
[2016-09-12] MEDS: ROCEPHIN 1,000 MG in NS 100ML 100 ML IV SCH (09:28)
[2016-09-12] MEDS: VITAMIN B-12 PO SCH (09:29)
[2016-09-12] MEDS: TIMOPTIC BOTH EYES SCH (09:36)
[2016-09-12] MEDS ORDERED: CIPR500S3 PO (10:10)
--- NOTE | 2016-09-12 10:14 | PRM.DC ---
Discharge Summary Date of Arrival on Unit: Sep 07, 2016 Reason for Visit: weakness Additional Comments Call Dr Reece's office tomorrow to schedule TURP Care for urinary catheter as instructed History Present Illness: (1) Urinary retention due to benign prostatic hyperplasia SEVERITY: MILD PERSISTENT Status: Chronic ICD Code: N40.1 SNOMED: [id number] Assessment & Plan: Call Dr Reece's office tomorrow to schedule TURP Urinary catheter care per instructions General: Alert, Oriented X3, Cooperative, No acute distress HEENT: PERRLA, EOMI Neck: Supple, No JVD Lungs: Clear to auscultation, Normal air movement Heart: Regular rate, Normal S1, Normal S2 Abdomen: Normal bowel sounds, Soft, No tenderness Extremities: No clubbing, No cyanosis Skin: No rashes, No breakdown Neuro: Normal gait, Normal speech Psych/Mental Status: Mental status NL, Mood NL Scheduled Cetirizine Hcl (Cetirizine Hcl) 10 MG PO DAILY (Reported) Cholecalciferol (Vitamin D3) (Vitamin D) 1,000 UNIT PO DAILY (Reported) Ciprofloxacin (Ciprofloxacin) 500 MG PO BID Cyanocobalamin (Vitamin B-12) (Vitamin B-12) 1,000 MCG PO DAILY (Reported) Propranolol Hcl (Propranolol Hcl) 10 MG PO BID (Reported) Tamsulosin Hcl (Flomax) 0.4 MG PO DAILY (Reported) Timolol Maleate (Timolol Maleate) 1 DROP BOTH EYES BID (Reported) Urea (Urea) 30 GM TP HS (Reported) Course Blood Pressure Systolic: 124 Blood Pressure Diastolic: 67 Blood Pressure Mean: 86 CALVIN TREJO MD Sep 12, 2016 10:14
[2016-09-12 10:46] VITALS: BP 124/67
--- NOTE | 2016-09-12 10:46 | NUR ---
Discharge Discharge instructions given to patient. Educated patient on importance of Dr. appointment with Dr. Mckay, patient verbalized understanding. Educated patient on catheter care, patient returned demonstration and verbalized understanding. Educated patient on new medication, patient verbalized understanding. Instructed patient to finish entire course of antibiotics, patient verbalized understanding. IV discontinued, catheter tip intact. No bleeding, swelling, redness, heat or pain noted. Covered with cotton ball and bandaid. Answered all of patients questions. Patient transferred off unit via wheelchair to private vehicle, garland catheter in place. No s/s of distress noted.
== END 2016-09-12 11:54 | disposition home or self-care (01) | DRG 726 ==
LOC: MS 04:04
PROVIDERS: ADMIT Internal Medicine; ATTEND Internal Medicine
PROC: 4A0D7BZ Measurement of Urinary Pressure, Via Natural or Artificial Opening (ICD-10-PCS; 2016-09-09)
PROC: 0TJB8ZZ Inspection of Bladder, Via Natural or Artificial Opening Endoscopic (ICD-10-PCS; principal; 2016-09-09 11:39)
DX: N40.1 Benign prostatic hyperplasia with lower urinary tract symptoms (principal); N39.0 Urinary tract infection, site not specified; N13.8 Other obstructive and reflux uropathy; R33.8 Other retention of urine; I35.0 Nonrheumatic aortic (valve) stenosis; I10 Essential (primary) hypertension; K43.9 Ventral hernia without obstruction or gangrene; J44.9 Chronic obstructive pulmonary disease, unspecified; G89.29 Other chronic pain; M54.5 Low back pain; Z53.09 Procedure and treatment not carried out because of other contraindication; Z88.8 Allergy status to other drugs, medicaments and biological substances; Z79.899 Other long term (current) drug therapy
CPT/HCPCS: 36415; 74177; 80048; 80061; 80076; 81000; 82550; 83036; 83880; 84443; 84484; 85007; 85025; 85610; 85730; 87040; 87077; 87086; 87186; 93005; 93307; 93970; J0696; J1650; J1956; J2250; J2405; J3010; J3490; J7030; J7040; J7050; Q9967; A9270; J3370